=== PATIENT | female | born 1975 | race African-American/Black ===

== ENCOUNTER 2016-12-09 08:18 | Emergency (ER) | payer OTHER ==
[2016-12-09] MEDS ORDERED: OPTIRAY 350 100 ML VIAL HMH IV ONE (08:19)
[2016-12-09] MEDS ORDERED: ONDANSETRON 4 MG VIAL ONE (09:42)
[2016-12-09] MEDS ORDERED: DILAUDID 1 MG/ML AMP ONE (09:43)
== END 2016-12-09 14:04 | disposition home or self-care (01) ==
LOC: ER 08:18
CPT/HCPCS: 36415; 74177; 80053; 81003; 82274; 83690; 84703; 85025; 85610; 85730; 96374; 96375